=== PATIENT | male | born 1980 | race Caucasian/White ===

== ENCOUNTER 2020-01-30 12:46 | Outpatient (REF) | payer OTHER, SELFPAY | END 2020-01-30 12:47 | disposition home or self-care (01) | LOC: HO.LAB 12:46 | PROVIDERS: PCP Internal Medicine; Visit Provider Internal Medicine | DX: Z20.828 Contact with and (suspected) exposure to other viral communicable diseases (principal) | CPT/HCPCS: C9803; U0003 ==

== ENCOUNTER 2020-02-08 10:08 | Outpatient (REF) | payer OTHER, SELFPAY | END 2020-02-08 10:09 | disposition home or self-care (01) | LOC: HO.LAB 10:08 | PROVIDERS: PCP Internal Medicine; Visit Provider Internal Medicine | DX: Z20.828 Contact with and (suspected) exposure to other viral communicable diseases (principal) | CPT/HCPCS: C9803; U0003 ==

== ENCOUNTER 2023-02-21 00:47 | Emergency (ER) | payer OTHER, SELFPAY ==
--- NOTE | ~2023-02-21 | XR_ITS ---
EXAMINATION: XR HAND, RIGHT CLINICAL INFORMATION: Injury COMPARISON: None available. TECHNIQUE: PA, lateral, and oblique views of the right hand. FINDINGS: Osseous alignment is anatomic. No acute fracture is seen. No significant focal soft tissue abnormality identified. XR/XR hand RT min 3V IMPRESSION: No acute findings identified.
[2023-02-21 01:03] VITALS: BP 102/65; PULSE 79; RESP 20; TEMP 36.7; O2SAT 99; BMI 25.9
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
--- NOTE | 2023-02-21 01:28 | PC.NURSE ---
ice provided for MD zeynep at bedside. splint will be applied
[2023-02-21 01:29] VITALS: BP 108/63; PULSE 67; RESP 16; TEMP 36.7; O2SAT 95
== END 2023-02-21 02:01 | disposition home or self-care (01) ==
LOC: HO.ED 01:46
PROVIDERS: Emergency Provider Emergency Medicine
DX: S60.221A Contusion of right hand, initial encounter (principal); Y04.8XXA Assault by other bodily force, initial encounter; Y93.89 Activity, other specified; Y92.9 Unspecified place or not applicable; Y99.9 Unspecified external cause status
CPT/HCPCS: 73130; 99283; 99284

== ENCOUNTER 2024-08-29 09:04 | Emergency (ER) | payer SELFPAY ==
--- NOTE | ~2024-08-29 | XR_ITS ---
Exam: 5 view x-ray lumbar spine TECHNIQUE: AP, lateral, lateral spot, bilateral oblique views of lumbar spine INDICATION: Lower back pain, difficulty walking due to pain Prior: None FINDINGS: SI joints are symmetrical and unremarkable. There are 5 nonrib-bearing lumbar segments. Convex left curvature of the lumbar spine does not meet the definition of scoliosis. Vertebral body height and alignment is preserved. There is minimal disc space narrowing at L4-5. XR/XR lumbar spine 4V min IMPRESSION: Mild degenerative disc disease at L4-5. Electronically signed by: Michael Vega MD 08/29/2024 12:15 PM EDT
[2024-08-29 09:32] VITALS: BP 103/67; PULSE 70; RESP 18; TEMP 36.8; O2SAT 96; BMI 26.3
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
[2024-08-29 11:00] VITALS: BP 103/67; PULSE 70; RESP 18; TEMP 36.8; O2SAT 96
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
== END 2024-08-29 11:00 | disposition home or self-care (01) ==
PROVIDERS: Emergency Provider Emergency Medicine; PCP Internal Medicine
DX: S39.012A Strain of muscle, fascia and tendon of lower back, initial encounter (principal); R05.9 Cough, unspecified; X58.XXXA Exposure to other specified factors, initial encounter; W18.30XA Fall on same level, unspecified, initial encounter; Y93.9 Activity, unspecified; Y92.9 Unspecified place or not applicable; Y99.8 Other external cause status
CPT/HCPCS: 72110; 99282; 99283

== ENCOUNTER → 2024-08-29 09:55 | Outpatient (BNV) | payer SELFPAY | PROVIDERS: Emergency Provider Emergency Medicine; PCP Internal Medicine; Visit Provider Radiology Diagnostic Radiology | DX: M54.50 Low back pain, unspecified (principal); R26.2 Difficulty in walking, not elsewhere classified | CPT/HCPCS: 72110 ==